=== PATIENT | female | born 1955 | race Caucasian/White ===

== ENCOUNTER → 2020-01-31 12:47 | Outpatient (BNVA) | payer OTHER, SELFPAY | PROVIDERS: Family Provider Family Medicine; PCP Family Medicine; Referring Provider Dermatology; Visit Provider Dermatology | DX: L30.0 Nummular dermatitis (principal); L40.8 Other psoriasis; F17.210 Nicotine dependence, cigarettes, uncomplicated | CPT/HCPCS: 99203 ==

== ENCOUNTER → 2023-03-02 15:08 | Outpatient (BNVA) | payer OTHER, SELFPAY | PROVIDERS: Family Provider Family Medicine; PCP Family Medicine; Visit Provider Family Medicine | DX: I83.90 Asymptomatic varicose veins of unspecified lower extremity (principal); Z13.6 Encounter for screening for cardiovascular disorders | CPT/HCPCS: 80053; 80061 ==

== ENCOUNTER 2023-04-06 09:15 | Outpatient (CLI) | payer OTHER, SELFPAY ==
--- NOTE | 2023-04-06 09:30 | USCV_ITS ---
Anneliese Altamirano Age: 67 Gender: F : 1955 Exam Date: 04/06/2023 09:55 Ordering Phys: Fredis Marie MD (Andy) ([email or web address]) Technologist: [place] [facility] [place]: HISTORY: PROCEDURES: FINDINGS: The veins were found to be easily compressible with spontaneous blood flow. Non pulsatile flow pattern. No significant venous reflux were noted on the right side Venous reflux was noted at the greater saphenous vein segment at the below-knee level on the left side. The reflux time was 2.34 seconds. The venous diameter at this level was 0.32 cm, and at a depth of 0.19 cm, from the surface. 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 The reflux time at the proximal segment was 3.57-second and at the mid segment was 2.82 seconds. These segments were found to be very superficial-the proximal segment was 0.47 cm deep from the surface. The proximal segment was 0.47 cm in diameter. CONCLUSIONS 1. No evidence of DVT in the above-mentioned identifiable veins bilaterally. 2. No significant venous reflux on the right side 3. Significant venous reflux were noted at the below-knee segment of the greater saphenous vein, proximal and mid segments of the small saphenous vein on the left side. However these segments were found to be very superficial. The details of the reflux time, venous diameter and depth from the surface are as mentioned above Dr Vinnie Concepcion MD [facility] (Electronically Signed) Final Date: 07 April 2023 09:17 S
== END 2023-04-06 09:16 | disposition home or self-care (01) ==
LOC: RAD 09:15
PROVIDERS: Family Provider Family Medicine; PCP Family Medicine; Visit Provider Thoracic Surgery (Cardiothoracic Vascular Surgery)
DX: I83.90 Asymptomatic varicose veins of unspecified lower extremity (principal); I87.2 Venous insufficiency (chronic) (peripheral)
CPT/HCPCS: 93970

== ENCOUNTER → 2024-03-30 14:11 | Outpatient (BNVA) | payer OTHER, SELFPAY | PROVIDERS: Family Provider Family Medicine; PCP Family Medicine; Visit Provider Family Medicine | DX: Z00.00 Encounter for general adult medical examination without abnormal findings (principal) | CPT/HCPCS: 80053; 80061 ==

== ENCOUNTER → 2025-03-06 15:15 | Outpatient (BNVA) | payer OTHER, SELFPAY | PROVIDERS: Family Provider Family Medicine; PCP Family Medicine; Visit Provider Family Medicine | DX: Z00.00 Encounter for general adult medical examination without abnormal findings (principal); I20.89 Other forms of angina pectoris; F43.9 Reaction to severe stress, unspecified | CPT/HCPCS: 80053; 80061; 85025 ==

== ENCOUNTER → 2025-04-23 10:24 | Outpatient (BNVA) | payer OTHER, SELFPAY | PROVIDERS: Family Provider Family Medicine; PCP Family Medicine; Referring Provider Family Medicine; Visit Provider Internal Medicine Cardiovascular Disease | DX: R07.9 Chest pain, unspecified (principal); R00.0 Tachycardia, unspecified; R94.31 Abnormal electrocardiogram [ECG] [EKG] | CPT/HCPCS: 36415; 83735; 84443; 93005 ==

== ENCOUNTER 2025-05-11 06:58 | Outpatient (CLI) | payer MEDICARE, SELFPAY ==
--- NOTE | 2025-05-11 07:15 | USCV_ITS ---
Anneliese Altamirano Age: 69 Gender: F : 1955 Exam Date: 05/11/2025 07:40 Ordering Phys: Sky Gallardo MD ([email or web address]) Technologist: WEN Exam Location: [facility] [place] Indication: tachycardia BP: 132 / 74 HR: 54 Rhythm: Sinus Technical Quality: Adequate MEASUREMENTS (Male / Female) Normal Values 2D ECHO LV Diastolic Diameter PLAX 5.1 cm 4.2 - 5.9 / 3.9 - 5.3 cm IVS Diastolic Thickness 0.4 cm 0.6 - 1.0 / 0.6 - 0.9 cm IVS Systolic Thickness 0.9 cm LVPW Diastolic Thickness 0.7 cm 0.6 - 1.0 / 0.6 - 0.9 cm LVPW Systolic Thickness 1.1 cm LVOT Diameter 2.0 cm LV Ejection Fraction 2D Teich 60.4 % LV Ejection Fraction MOD 4C 60.0 % LV Ejection Fraction MOD 2C 73.3 % LV Ejection Fraction 2C AL 74.4 % LA Diameter 3.6 cm RA Systolic Volume 4C AL 33.6 ml RA Systolic Volume 4C MOD 33.6 ml LA Sys Volume AL 42.5 cm cubed LA Sys Volume Index AL 28.8 cm cubed/m squared Aorta at Sinotubular Diameter 2.4 cm IVC Diameter 1.3 cm M-MODE LA Ao Ratio MM 1.6 AV Cusp Separation MM 1.3 cm DOPPLER MV Peak Velocity 81.0 cm/s MV Area PHT 4.3 cm squared Mitral E to A Ratio 0.9 TV Peak Velocity 224.0 cm/s TR Peak Velocity 300.0 cm/s TR Peak Gradient 36.0 mmHg TR Mean Velocity 213.0 cm/s TR Mean Gradient 20.5 mmHg TR Velocity Time Integral 79.6 cm PV Peak Velocity 78.0 cm/s RV Ejection Time 0.3 s FINDINGS Left Ventricle Normal left ventricular size, systolic function and wall thickness with no regional wall motion abnormality. Left ventricular ejection fraction is 60%. Normal left ventricular diastolic function. Right Ventricle Normal right ventricular size and systolic function. Right Atrium Normal right atrial size. Left Atrium Normal left atrial size. IA Septum Normal appearance of the interatrial septum. Mitral Valve Normal mitral valve structure. Trace regurgitation. Aortic Valve Normal aortic valve structure. No aortic valve stenosis. Mild aortic valve regurgitation Tricuspid Valve Normal tricuspid valve structure. Trace regurgitation. Normal pulmonary pressure. Pulmonic Valve Normal pulmonic valve structure. Trace regurgitation. Pericardium No pericardial effusion. Aorta Normal diameter of the aortic root and ascending thoracic aorta. IVC Normal IVC diameter. CONCLUSIONS Normal left ventricular size, systolic function and wall thickness with ejection fraction of 60%. Normal right ventricular size and systolic function. Mild aortic valve regurgitation Sky Gallardo MD, FACC (Electronically Signed) Final Date: 17 May 2025 13:57 S
[2025-05-11 07:22] VITALS: BMI 20.9
--- NOTE | 2025-05-11 07:26 | ECG_ITS ---
[employer] Test Date: 2025-05-11 Pat Name: Anneliese Altamirano Department: Room: Gender: Female [employer]: : 1955 Requested By: Sky Gallardo Order Number: [id number] Valiente MD: Joe Broussard M.D. Interpretive Statements EXERCISE MIBI EXERCISE DATA: The patient was exercised by Lucas protocol. Baseline heart rate was 62 beats per minute. Baseline blood pressure was 147/76 millimeters of mercury. Maximal predicted heart rate was 153 beats per minute. Maximum heart rate achieved was 140, which was 91% of the maximum predicted heart rate. Maximum blood pressure was 188/82 millimeters of mercury. Total exercise time was 6 minutes. Maximum METs achieved was 7.0. The reason for ending the test was completion of protocol. The patient complained of shortness of breath during the stress test, which then resolved at the end of the test. ELECTROCARDIOGRAM: BASELINE: Showed sinus rhythm, normal axis, no significant ST-T changes at the baseline noted. [] EXERCISE: At the peak exercise level, [] non-specific ST-T changes not suggestive of ischemia noted. [] RECOVERY: During the recovery period, heart rate dropped appropriately. No significant ST-T changes in the recovery suggestive of ischemia noted. [] CONCLUSION: 1. Exercise capacity is fair 2. Heart rate response was appropriate 3. Blood pressure response was appropriate 4. Symptoms not suggestive of ischemia. 5. Electrocardiogram portion of the stress test was not suggestive of ischemia. 6. Nuclear scan will be documented separately. Electronically Signed On 06-03-2025 15:23:16 STATE TESTED NURSING ASSISTANT by Joe Broussard M.D. [email or web address]
--- NOTE | 2025-05-11 07:33 | NMCV_ITS ---
NM edgar perf SPECT r/s* [id number] Anneliese Altamirano Age: 69 Gender: F : 1955 Exam Date: 05/11/2025 07:50 Ordering Phys: Sky Gallardo MD ([email or web address]) Technologist: DENISSE Gabriel Exam Location: [facility] Indications: cp STRESS TEST Please see separate stress test report in [facility] for full findings IMAGE PROTOCOL Rest/Stress 1 Exercise Day Radiopharmaceutical Dose (mCi) Administration Site Administered by Rest: Tc-99m 10.3 IV DENISSE Gabriel Sestamibi Stress:Tc-99m 32.4 IV DENISSE Amador Sestamibi Rest: 11-May-2025 60 Discovery 630 Stress: 11-May-2025 30 Discovery 630 Radiopharmaceutical was injected at 88 % maximum heart rate. Images obtained in supine and prone position. SPECT RESULTS Technical Quality: Good Raw Data Analysis: Normal Image Corrections: No attenuation or motion correction applied Summed Stress Score: 0 Summed Rest Score: 1 Summed Difference Score: 0 PERFUSION FINDINGS SPECT images demonstrate homogeneous tracer distribution throughout the myocardium. FUNCTIONAL RESULTS (calculated via Gated SPECT) Stress Image LV EF (%): 74 Stress EDV (mL):70 TID: 0.8 Stress ESV (mL):18 FUNCTIONAL FINDINGS: There is normal left ventricular systolic function. IMPRESSIONS 1. Normal myocardial perfusion imaging with no evidence of ischemia. 2. LV systolic function is normal. Joe Broussard MD (Electronically Signed) Final Date: 12 May 2025 12:16 S
[2025-05-11 08:45] VITALS: BP 121/68; PULSE 78
== END 2025-05-11 06:59 | disposition home or self-care (01) ==
PROVIDERS: Family Provider Family Medicine; PCP Family Medicine; Visit Provider Internal Medicine Cardiovascular Disease
DX: R00.0 Tachycardia, unspecified (principal); R07.9 Chest pain, unspecified; I35.1 Nonrheumatic aortic (valve) insufficiency
CPT/HCPCS: 36415; 78452; 93017; 93306; A9500; J9999